=== PATIENT | female | born 1960 | race Caucasian/White ===

== ENCOUNTER 2021-05-07 04:22 | Inpatient (IN) | payer MEDICARE, OTHER ==
[~2021-05-07] VITALS: Ht 160 cm; Wt 56.2 kg
--- NOTE | 2021-05-07 07:23 | NUR ---
GPS RN NOTE RECEIVED DIRECT ADMIT FROM [facility] AT 0705 TO ROOM 213-1. REPORT GIVEN AM RN FOR CONTINUITY OF CARE.
[2021-05-07 08:00] VITALS: BP 118/59
[2021-05-07] MEDS ORDERED: MAGNESIUM HYDROXIDE 30 ML UDC PO PRN (08:30)
[2021-05-07] MEDS ORDERED: TEMAZEPAM 7.5 MG CAPSULE PO PRN (08:30)
[2021-05-07] MEDS ORDERED: MAG HYDROX/AL HYDROX/SIMETH 30 ML UDC PO PRN (08:30)
[2021-05-07] MEDS ORDERED: LORAZEPAM 0.5 MG TABLET PO PRN ×2 (08:30→11:00)
[2021-05-07] MEDS ORDERED: BLOOD SUGAR DIAGNOSTIC 1 EACH STRIP IN ONE (08:30)
[2021-05-07] MEDS ORDERED: ACETAMINOPHEN 325 MG TABLET PO PRN (08:30)
--- NOTE | 2021-05-07 10:25 | NUR ---
ARASH Initial Discharge Plan: Patient currently resides at [facility] located at [facility] [place] [address]; ([phone]). Patient wants to return back to her memory care unit. ARASH spoke with patient's mother Kirstie ([phone]) to gather collateral. ARASH discussed treatment and discharge plan. Mother wants pt back to Memory Care unit, she stated that pt is the DPOA and is unable to send the documents because she is 81. ARASH will work with the MD and treatment team to help coordinate appropriate discharge.
--- NOTE | 2021-05-07 10:25 | NUR ---
ARASH Family Contact: ARASH spoke with patient's mother Kirstie ([phone]) to gather collateral. SW discussed treatment and discharge plan. Mother wants pt back to Memory Care unit, she stated that pt is the DPOA and is unable to send the documents because she is 81.
--- NOTE | 2021-05-07 10:26 | NUR ---
ARASH Note: ARASH received a call from patient's therapist Pily ([phone]) who stated she would want pt to transfer at [facility]. SW left a detailed voicemail.
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
[2021-05-07] MEDS ORDERED: OLANZAPINE 10 MG TABLET PO SCH (10:30)
[2021-05-07] MEDS ORDERED: LORAZEPAM 1 MG TABLET PO PRN (10:30)
--- NOTE | 2021-05-07 10:53 | NUR ---
UR Insurance: Patient authorized from 05/04/2021 05/09/2021. Auth was given funmilayo nunez auth #[id number] Called jun @[phone] s/w Eleno Johansen assigned sanitation manager is Laisha Boswell @[phone]. Addendum: 05/07/21 at 1202 by ARASH AKHTAR wrong patient
--- NOTE | 2021-05-07 12:03 | NUR ---
[facility]: ARASH contacted [facility] ([phone]) and spoke with Raya who stated that pt is welcomed back upon dc and will provide transportation upon dc.
--- NOTE | 2021-05-07 14:11 | NUR ---
PT AGITATED. ATIVAN 1MG GIVEN. WILL CONTINUE TO MONITOR.
[2021-05-07 14:50] LABS: BASOPHILS % (AUTO) 0.4 % (0.0-2.0); EOSINOPHILS % (AUTO) 0.3 % (0.0-6.0); HEMATOCRIT 36 % (33-45); HEMOGLOBIN 11.9 g/dL (11.5-14.8); LYMPHOCYTES # (AUTO) 2.5 K/uL (0.8-4.8); LYMPHOCYTES % (AUTO) 42.3 % (20.0-44.0); MEAN CORPUSCULAR HGB CONC 33 g/dl (31.0-36.0); MEAN CORPUSCULAR VOLUME 85 fL (82-100); MONOCYTES # (AUTO) 0.6 K/uL (0.1-1.30); MONOCYTES % (AUTO) 10.2 % (2.0-12.0); NEUTROPHILS # (AUTO) 2.8 K/uL (1.8-8.9); NEUTROPHILS % (AUTO) 46.8 % (43.0-81.0); PLATELET COUNT (AUTO) 247 K/uL (150-450); RED BLOOD CELL COUNT(AUTO) 4.28 MIL/uL (4.0-5.2)
[2021-05-07] MEDS ORDERED: LEVO125T8 PO (15:42)
[2021-05-07] MEDS ORDERED: ESTR-28 PO (15:42)
[2021-05-07] MEDS ORDERED: CLOZ25TA4 PO (15:42)
[2021-05-07] MEDS ORDERED: LORA-259 PO (15:42)
[2021-05-07 16:00] VITALS: BP 122/59
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
--- NOTE | 2021-05-07 17:00 | NUR ---
DR GARRETT CONTACTED THROUGH EXCHANGE REGARDING MED RECON. AWAITING CALL BACK
[2021-05-07] MEDS: DIVALPROEX SODIUM 250 MG TABLET.DR PO SCH (21:00)
[2021-05-07] MEDS: CLOZAPINE 25 MG TABLET PO SCH (22:00)
[2021-05-07] MEDS ORDERED: CLOZAPINE 25 MG TABLET PO SCH (22:00)
--- NOTE | 2021-05-07 22:00 | NUR ---
GPS RN NOTES: Patient refused 2100 Depakote 250mg PO as ordered. Education provided on the importance of medication compliance. Will continue to monitor.
[2021-05-08] MEDS: LEVOTHYROXINE SODIUM 125 MCG TABLET PO SCH (07:00)
[2021-05-08 08:00] VITALS: BP 121/52
[2021-05-08] MEDS ORDERED: [UNRECOGNIZED DRUG - OTHER] PO SCH (09:00)
[2021-05-08] MEDS ORDERED: NORETHINDRONE ACETATE PO SCH (09:00)
[2021-05-08] MEDS ORDERED: ESTRADIOL PO SCH (09:00)
[2021-05-08] MEDS: DIVALPROEX SODIUM 250 MG TABLET.DR PO SCH ×2 (09:07→16:48)
[2021-05-08] MEDS: OLANZAPINE 5 MG TABLET PO PRN ×2 (11:35→13:07)
--- NOTE | 2021-05-08 13:11 | NUR ---
PT REFUSES BLOOD DRAW AT THIS TIME. CECELIA FROM LAB STATES THAT THE LAB WILL TRY AGAIN TODAY.
--- NOTE | 2021-05-08 13:11 | NUR ---
ZYPREXA 5MG PO PRN GIVEN FOR BEHAVIOR, SCREAMING AND AGITATED.
--- NOTE | 2021-05-08 14:40 | NUR ---
PER PT'S MOTHER PEG GO, PT IS ALLERGIC TO HALDOL SHE DEVELOPS SEVERE TARDIVE DYSKINESIA. PLACED ALLERGY.
[2021-05-08 16:00] VITALS: BP 139/99
[2021-05-08 20:00] VITALS: BP 128/67
[2021-05-08] MEDS: CLOZAPINE 25 MG TABLET PO SCH (20:54)
--- NOTE | 2021-05-08 20:54 | NUR ---
GPS/MOTOR EQUIPMENT LIEUTENANT NOTES: PT. REFUSED HS MEDS CLOZAPINE 75MG PO ORDERED. OFFERED 3X. EXPLAINED RISK AND BENEFITS. PT. STILL REFUSED.
[2021-05-09] MEDS: LEVOTHYROXINE SODIUM 125 MCG TABLET PO SCH (07:00)
[2021-05-09 08:00] VITALS: BP 119/67
[2021-05-09] MEDS: DIVALPROEX SODIUM 250 MG TABLET.DR PO SCH ×2 (09:00→17:00)
[2021-05-09 16:00] VITALS: BP 149/75
[2021-05-09 20:00] VITALS: BP 123/61
[2021-05-09] MEDS: CLOZAPINE 25 MG TABLET PO SCH (21:21)
--- NOTE | 2021-05-09 22:15 | NUR ---
PT REFUSED 2200 CLOZAPINE. PROVIDED EDUCATION BUT STILL REFUSED MEDICATION. WILL CONTINUE TO MONITOR.
[2021-05-10] MEDS: LEVOTHYROXINE SODIUM 125 MCG TABLET PO SCH (07:00)
--- NOTE | 2021-05-10 07:04 | NUR ---
PT REFUSED 0700 SYNTHROID. PROVIDED EDUCATION BUT STILL REFUSED MEDICATION. WILL CONTINUE TO MONITOR.
[2021-05-10 08:00] VITALS: BP 144/72
[2021-05-10] MEDS: DIVALPROEX SODIUM 250 MG TABLET.DR PO SCH ×2 (08:26→17:00)
--- NOTE | 2021-05-10 11:57 | NUR ---
[facility]: ARASH contacted [facility] ([phone]) and spoke with Charge nurse Sakshi who stated pt is welcomed back 05/11. ARASH also spoke with Sandra ([phone]) (F:[phone]) who stated she is welcomed back and will coordinate transportation. ARASH faxed patient's clinicals.
--- NOTE | 2021-05-10 12:31 | NUR ---
[facility]: ARASH spoke with Sandra ([phone]) (F:[phone]) who stated [facility] ([phone]) will provide transportation between 10AM-11AM on Thursday.
--- NOTE | 2021-05-10 12:38 | NUR ---
SW DISCHARGE NOTE Thursday05/11/2021: Patient will return back to [facility] located at [address] [place] [address]: ([phone]). ARASH spoke with Sandra ([phone]) (F:[phone]) who stated [facility] ([phone]) will provide transportation between 10AM-11AM on Thursday. ARASH spoke with MARTINA Cantor ([phone]) who stated pt is welcomed back. Patients mother Kirstie ([phone]) is aware and agreeable with discharge. SW notified pt's friend Pily ([phone]). Patient is alert and oriented x3. Patient denies suicidal or homicidal ideation. Patient denies visual/auditory hallucinations. Patient will follow up with ([facility]) Dr. Escalante located at [address], [place] [address] ([phone]) at the facility. Patient will follow up with (Psychiatrist) Dr. Elizabeth Ba located at [address] [address]; ([phone]) at the facility. Patient presents with euthymic mood and congruent affect.
[2021-05-10 16:11] VITALS: BP 112/72
[2021-05-10 19:55] VITALS: BP 132/76
[2021-05-10 20:54] VITALS: BP 132/76
[2021-05-11] MEDS: LEVOTHYROXINE SODIUM 125 MCG TABLET PO SCH (07:00)
--- NOTE | 2021-05-11 07:01 | NUR ---
GPS RN NOTE: MEDICATION REFUSAL PATIENT REFUSED LEVOTHYROXINE X 3 ORDERED DESPITE OF RISKS AND BENEFITS EXPLANATIONS.
[2021-05-11 08:00] VITALS: BP 150/63
[2021-05-11] MEDS: DIVALPROEX SODIUM 250 MG TABLET.DR PO SCH (08:32)
--- NOTE | 2021-05-11 08:52 | NUR ---
Dr. Khalil gave an order to D/C hold and D/C to [facility]. Pt. is for discharge with no psych meds. Confirmed to Hector from the facility and said that they are taking her back and they will provide a transportation to pick between 10:00 to 11:[address] Khalil is aware. Spoke to the medication nurse Nakia that pt. is for doischarge with no psych meds and per psychiatrist until seen by her psychiatrist. Addendum: 05/11/21 at 0932 by RADU RIVERA RN Pt. to follow up psych and medical doctors.
--- NOTE | 2021-05-11 10:25 | NUR ---
Contacted Kirstie Cifuentes ( mother) at [phone] and made aware of the discharge.
--- NOTE | 2021-05-11 12:49 | NUR ---
GPS/RN PT DISCHARGED BACK TO [facility] AND PICKED UP BY FACILITY TRANSPORTATION. PRESCRIPTIONS AND EXIT CARE INSTRUCTIONS PROVIDED. NO SI OR HI AT THE TIME OF D/C. PROPERTY RETURNED.
== END 2021-05-11 10:45 | DRG 885 ==
LOC: GPS 06:44
PROVIDERS: ADMIT Psychiatry & Neurology Psychosomatic Medicine
DX: F25.9 Schizoaffective disorder, unspecified (principal); E03.9 Hypothyroidism, unspecified; F42.3 Hoarding disorder; Z88.0 Allergy status to penicillin; F29 Unspecified psychosis not due to a substance or known physiological condition; Z20.822 Contact with and (suspected) exposure to COVID-19
CPT/HCPCS: 36415; 85025-TC; 87081-TC; 97116-TC; 97530-TC